=== PATIENT | male | born 1975 | race Caucasian/White ===

== ENCOUNTER 2024-12-02 16:26 | Emergency (ER) | payer OTHER ==
[~2024-12-02] VITALS: Ht 157.5 cm; Wt 69.5 kg
[2024-12-02 16:35] VITALS: BP 138/79; PULSE 73; RESP 18; TEMP 98.5; O2SAT 98
== END 2024-12-02 16:35 | disposition left against medical advice (07) ==
LOC: EMS 16:26
DX: R07.9 Chest pain, unspecified (principal); Z53.21 Procedure and treatment not carried out due to patient leaving prior to being seen by health care provider
CPT/HCPCS: 93005